=== PATIENT | female | born 1965 | race African-American/Black ===

== ENCOUNTER 2022-08-01 09:56 | Outpatient (CLI) | payer MEDICARE | END 2022-08-01 09:57 | disposition home or self-care (01) | LOC: CSHMAMMO 09:56 | DX: Z12.31 Encounter for screening mammogram for malignant neoplasm of breast (principal) | CPT/HCPCS: 77063; 77067 ==

== ENCOUNTER 2022-09-18 09:59 | Outpatient (CLI) | payer MEDICARE | END 2022-09-18 10:00 | disposition home or self-care (01) | LOC: CSHMAMMO 09:59 | PROVIDERS: ATTEND Internal Medicine | DX: M85.851 Other specified disorders of bone density and structure, right thigh (principal); M85.852 Other specified disorders of bone density and structure, left thigh; Z78.0 Asymptomatic menopausal state | CPT/HCPCS: 77080 ==

== ENCOUNTER 2022-10-22 09:19 | Outpatient (CLI) | payer MEDICARE | END 2022-10-22 09:20 | disposition home or self-care (01) | LOC: CSHMRI 09:19 | PROVIDERS: ATTEND Internal Medicine | DX: G43.009 Migraine without aura, not intractable, without status migrainosus (principal); D35.2 Benign neoplasm of pituitary gland | CPT/HCPCS: 70553 ==